=== PATIENT | male | born 1970 | race Caucasian/White ===

== ENCOUNTER 2020-06-08 23:15 | Emergency (ER) | payer MEDICAID, OTHER ==
[~2020-06-08] VITALS: Ht 185.4 cm; Wt 113.6 kg
[~2020-06-08 23:15] MED LIST: CLON0.1T PO; GABA800T11 PO; TRAM200T36 PO
[2020-06-08 23:22] VITALS: BP 181/102
[2020-06-09] MEDS ORDERED: HYDR-4353 PO (00:25)
[2020-06-09] MEDS ORDERED: HYDROcodone/acetaminophen 10/325mg tab PO ONE (00:25)
[2020-06-09] MEDS ORDERED: NAPR-56 PO (00:25)
== END 2020-06-09 00:40 | disposition home or self-care (01) ==
LOC: ER 23:15
DX: M25.561 Pain in right knee (principal); M25.461 Effusion, right knee; Z88.5 Allergy status to narcotic agent; Z79.899 Other long term (current) drug therapy
CPT/HCPCS: 99284

== ENCOUNTER 2020-08-03 19:34 | Emergency (ER) | payer MEDICAID ==
[~2020-08-03] VITALS: Ht 185.4 cm; Wt 113.6 kg
[2020-08-03 20:51] LABS: BASOPHILS # (AUTO) 0.1 X10'3 (0-0.2); EOSINOPHILS # (AUTO) 0.2 X10'3 (0-0.9); EOSINOPHILS % (AUTO) 3.6 % (0-6); HEMATOCRIT 41.6 % (42.0-52.0); HEMOGLOBIN 14.3 g/dl (14.0-17.9); LYMPHOCYTES # (AUTO) 2.1 X10'3 (1.1-4.8); LYMPHOCYTES % (AUTO) 32.8 % (21-51); MEAN CORPUSCULAR HEMOGLOBIN 32.2 PG (27.0-31.0); MEAN CORPUSCULAR HGB CONC 34.3 g/dL (33.0-36.5); MEAN CORPUSCULAR VOLUME 93.7 FL (78-98); MEAN PLATELET VOLUME 6.8 FL (7.4-10.4); MONOCYTES # (AUTO) 0.5 X10'3 (0-0.9); MONOCYTES % (AUTO) 7.4 % (2-12); NEUTROPHILS # (AUTO) 3.5 X10'3 (1.8-7.7); NEUTROPHILS % (AUTO) 55.2 % (42-75); PLATELET COUNT 294 X10'3 (140-440); RED BLOOD COUNT 4.44 X10'6 (4.70-6.10); RED CELL DISTRIBUTION WIDTH 12.7 % (11.5-14.5); WHITE BLOOD COUNT 6.4 X10'3 (4.5-11.0)
[2020-08-03] MEDS ORDERED: cyclobenzaprine 10mg tablet PO ONE (20:55)
[2020-08-03] MEDS ORDERED: HYDROcodone/acetaminophen 10/325mg tab PO ONE (20:55)
[2020-08-03] MEDS ORDERED: ketorolac trometh. 30mg/ml inj. IM ONE (20:55)
[2020-08-03 20:56] LABS: CLARITY,URINE CLEAR (Clear); COLOR,URINE YELLOW (Yellow); GLUCOSE, URINE NEGATIVE (Neg); KETONES,URINE NEGATIVE (Neg); LEUKOCYTE ESTERASE ,URINE NEGATIVE (Neg); NITRITES, URINE NEGATIVE (Neg); OCCULT BLOOD,URINE TRACE-INTACT (Neg); PROTEIN,URINE NEGATIVE (Neg); UROBILINOGEN,URINE 0.2 E.U/dL (0.2-1.0)
[2020-08-03 21:01] LABS: BACTERIA,URINE NONE SEEN /HPF (Neg); RBC,URINE 0-2 /HPF (0-2); SQUAMOUS EPITHELIAL CELL,UR FEW /LPF (FEW); UA COLLECTION TYPE CLN CATCH MIDSTREAM; WBC,URINE NONE SEEN /HPF (0-4)
[2020-08-03 21:06] LABS: ALANINE AMINOTRANSFERASE 28 U/L (12-78); ALBUMIN 3.9 G/DL (3.4-5.0); ALBUMIN/GLOBULIN RATIO 1.2 (1.1-1.5); ALKALINE PHOSPHATASE 78 IU/L (46-116); ANION GAP 8 (8-16); ASPARTATE AMINO TRANSFERASE 20 U/L (10-37); BILIRUBIN,TOTAL 0.2 MG/DL (0.1-1.0); BLOOD UREA NITROGEN 19 MG/DL (7-18); CALCIUM 8.8 MG/DL (8.5-10.1); CHLORIDE 107 MMOL/L (99-107); GLUCOSE 107 MG/DL (70-104); LIPASE 172 U/L (73-393); POTASSIUM 3.9 MMOL/L (3.5-5.1); SODIUM 141 MMOL/L (135-145); TOTAL CARBON DIOXIDE 25.7 MMOL/L (24-32); TOTAL PROTEIN 7.2 G/DL (6.4-8.2); eGFR 80 ML/MIN
[2020-08-03] MEDS ORDERED: CYCL-1 PO (21:32)
[2020-08-03] MEDS ORDERED: HYDR-3965 PO (21:32)
[2020-08-03 21:48] VITALS: BP 129/74
== END 2020-08-03 21:50 | disposition home or self-care (01) ==
LOC: ER 19:34
DX: R10.9 Unspecified abdominal pain (principal); F17.200 Nicotine dependence, unspecified, uncomplicated; Z87.442 Personal history of urinary calculi; Z72.89 Other problems related to lifestyle; Z88.6 Allergy status to analgesic agent; Z79.899 Other long term (current) drug therapy
CPT/HCPCS: 36415; 80053; 81001; 83690; 85025; 96372; 99283; J1885

== ENCOUNTER 2020-08-24 18:27 | Emergency (ER) | payer MEDICAID ==
[~2020-08-24] VITALS: Ht 185.4 cm; Wt 120.5 kg
[~2020-08-24 18:27] MED LIST changes: +CYCL-1 PO; +HYDR-3965 PO
[2020-08-24] MEDS ORDERED: HYDROcodone/acetaminophen 10/325mg tab PO ONE (19:45)
[2020-08-24 19:57] VITALS: BP 152/86
== END 2020-08-24 19:59 | disposition home or self-care (01) ==
LOC: ER 18:27
DX: M25.561 Pain in right knee (principal); G89.29 Other chronic pain; F17.200 Nicotine dependence, unspecified, uncomplicated; F15.90 Other stimulant use, unspecified, uncomplicated; Z87.442 Personal history of urinary calculi; Z72.89 Other problems related to lifestyle; Z88.8 Allergy status to other drugs, medicaments and biological substances; Z79.899 Other long term (current) drug therapy
CPT/HCPCS: 73564; 99284

== ENCOUNTER 2020-09-27 19:48 | Emergency (ER) | payer MEDICAID ==
[~2020-09-27] VITALS: Ht 185.4 cm; Wt 113.6 kg
[~2020-09-27 19:48] MED LIST changes: -HYDR-3965 PO
[2020-09-27 22:17] VITALS: BP 137/97
== END 2020-09-27 22:21 | disposition home or self-care (01) ==
LOC: ER 19:50
DX: M25.522 Pain in left elbow (principal); G89.29 Other chronic pain; F17.200 Nicotine dependence, unspecified, uncomplicated; Z87.442 Personal history of urinary calculi; Z98.890 Other specified postprocedural states; Z72.89 Other problems related to lifestyle; Z88.5 Allergy status to narcotic agent; Z79.899 Other long term (current) drug therapy
CPT/HCPCS: 73080; 99283

== ENCOUNTER 2020-12-09 06:40 | Day surgery (SDC) | payer MEDICAID ==
[2020-12-01 15:51] LABS: BASOPHILS # (AUTO) 0.1 X10'3 (0-0.2); BASOPHILS % (AUTO) 0.9 % (0-1); EOSINOPHILS # (AUTO) 0.3 X10'3 (0-0.9); EOSINOPHILS % (AUTO) 4.3 % (0-6); LYMPHOCYTES # (AUTO) 2.3 X10'3 (1.1-4.8); LYMPHOCYTES % (AUTO) 31.7 % (21-51); MEAN CORPUSCULAR HEMOGLOBIN 31.7 PG (27.0-31.0); MEAN CORPUSCULAR HGB CONC 33.5 g/dL (33.0-36.5); MEAN CORPUSCULAR VOLUME 94.6 FL (78-98); MEAN PLATELET VOLUME 6.8 FL (7.4-10.4); MONOCYTES # (AUTO) 0.5 X10'3 (0-0.9); NEUTROPHILS # (AUTO) 4.1 X10'3 (1.8-7.7); NEUTROPHILS % (AUTO) 56.1 % (42-75); PRE OP HEMATOCRIT 44.4 % (42.0-52.0); PRE OP HEMOGLOBIN 14.9 g/dL (14.0-17.9); PRE OP PLATELET COUNT 321 X10'3 (140-440); RED BLOOD COUNT 4.69 X10'6 (4.70-6.10); RED CELL DISTRIBUTION WIDTH 13.4 % (11.5-14.5)
[2020-12-01 16:07] LABS: ALBUMIN 3.9 G/DL (3.4-5.0); ALBUMIN/GLOBULIN RATIO 1.1 (1.1-1.5); ALKALINE PHOSPHATASE 85 IU/L (46-116); BLOOD UREA NITROGEN 16 MG/DL (7-18); BUN/CREATININE RATIO 15.4 (5.4-32.0); CALCIUM 8.9 MG/DL (8.5-10.1); CHLORIDE 105 MMOL/L (99-107); CREATININE 1.04 MG/DL (0.60-1.10); PRE OP ALT 26 U/L (30-65); PRE OP ANION GAP 8 (8-16); PRE OP AST 15 U/L (10-37); PRE OP BILIRUB, TOTAL 0.2 MG/DL (0.0-1.0); PRE OP GLUCOSE 92 MG/DL (70-104); PRE OP POTASSIUM 3.7 MMOL/L (3.4-5.1); PRE OP SODIUM 143 MMOL/L (135-145); TOTAL CARBON DIOXIDE 30.2 MMOL/L (24-32); TOTAL PROTEIN 7.5 G/DL (6.4-8.2); eGFR 76 ML/MIN
[2020-12-09] VITALS (9 sets, daily range): BP systolic 100–122; BP diastolic 54–76
[~2020-12-09] VITALS: Ht 185.4 cm; Wt 120.7 kg
[~2020-12-09 06:40] MED LIST changes: +ACET-1025 PO; -CLON0.1T PO; -CYCL-1 PO; -TRAM200T36 PO; +cefazolin/dext.iso 2gm/100ml 100 ML IV ONE; +famotidine 20mg tablet PO ONE; +ringers solution, lacted 1,000 ML IV SCH
[2020-12-09] MEDS ORDERED: proCHLORperazine 10 MG/2 ml inj IV PRN (08:10)
[2020-12-09] MEDS ORDERED: ringers solution, lacted 1,000 ML IV SCH (08:10)
[2020-12-09] MEDS ORDERED: ondansetron/PF 4mg/2ml inj IV PRN (08:10)
[2020-12-09] MEDS ORDERED: meperidine/PF 25mg/ml syringe IV PRN ×3 (08:10)
[2020-12-09] MEDS ORDERED: morphine 2 MG/ML inj. syringe IV PRN (08:10)
[2020-12-09] MEDS ORDERED: triamcinolone acetonide 40mg/ml inj ONE (08:49)
[2020-12-09] MEDS ORDERED: BUPIVAcaine/PF 2.5 mg/ml (0.25%) 30ml vial ONE (08:49)
[2020-12-09] MEDS ORDERED: sevoflurane 250ml liquid IH ONE (08:58)
[2020-12-09] MEDS ORDERED: midazolam 1 mg/ML 2ml injection ONE (09:02)
[2020-12-09] MEDS ORDERED: propofol inj 20 ML IV ONE (09:02)
[2020-12-09] MEDS ORDERED: fentaNYL/PF 50MCG/1 ML 2ML syringe ONE (09:02)
[2020-12-09] MEDS ORDERED: vancomycin 1,000mg inj ONE (09:30)
--- NOTE | 2020-12-09 10:11 | NUR ---
Received from OR via [facility] , accompanied by Anesthesiologist LEANA and report given by Anesthesiolgist. PATIENT WITH 20G PIV IN RIGHT UE RUNNING LR AT 100. MEDICATED FOR PAIN UPON ARRIVAL. PATIENT BIAS DRESSING TO RIGHT KNEE THAT IS CDI. + DP RLE. Addendum: 12/09/20 at 1026 by Carlos Staples RN, RN Amended: Links added.
[2020-12-09] MEDS: morphine 4 MG/ML inj SYRINge IV PRN ×3 (10:37→10:58)
[2020-12-09] MEDS ORDERED: HYDROcodone/acetaminophen 5mg/325mg tablet PO ONE (11:20)
--- NOTE | 2020-12-09 11:31 | NUR ---
ALL DISCHARGE CRITERIA HAS BEEN MET. VSS, PAIN AT A TOLERABLE LEVEL, VOIDING AND ABLE TO SAFELY AMBULATE AND TRANSFER SELF. IV TAKEN OUT WITHOUT ANY COMPLICATIONS. ALL DISCHARGE INSTRUCTIONS COVERED WITH PATIENT AND ALL QUESTIONS ANSWERED. PATIENT TAKEN OUT VIA WHEELCHAIR TO PERSONAL VEHICLE WHERE FAMILY/FRIEND DROVE PATIENT HOME. Addendum: 12/09/20 at 1208 by Carlos Staples RN, RN Amended: Links added.
== END 2020-12-09 11:31 | disposition home or self-care (01) ==
LOC: PAS 06:40
PROVIDERS: ATTEND Orthopaedic Surgery
DX: S83.231A Complex tear of medial meniscus, current injury, right knee, initial encounter (principal); S83.281A Other tear of lateral meniscus, current injury, right knee, initial encounter; M94.261 Chondromalacia, right knee; M17.11 Unilateral primary osteoarthritis, right knee; G89.4 Chronic pain syndrome; E66.8 Other obesity; Z68.35 Body mass index [BMI] 35.0-35.9, adult; F41.9 Anxiety disorder, unspecified; Z98.890 Other specified postprocedural states; Z98.1 Arthrodesis status; Z87.891 Personal history of nicotine dependence; Z86.19 Personal history of other infectious and parasitic diseases; Z88.5 Allergy status to narcotic agent; Z79.899 Other long term (current) drug therapy; Z20.822 Contact with and (suspected) exposure to COVID-19; X58.XXXA Exposure to other specified factors, initial encounter; Y93.89 Activity, other specified; Y92.89 Other specified places as the place of occurrence of the external cause; Y99.8 Other external cause status
CPT/HCPCS: 29873; 29879; 29880; 36415; 80053; 82948; 85025; 93005; J2175; J2250; J2270; J2704; J3010; J3301; J3370; J3490; U0003; U0005; A4215; A4618; A6250; A6449; A7000; J7120